=== PATIENT | female | born 1980 | race Caucasian/White ===

== ENCOUNTER 2018-07-02 09:45 | Emergency (ER) | payer OTHER ==
[~2018-07-02] VITALS: Ht 167.6 cm; Wt 83.9 kg
[~2018-07-02 09:45] MED LIST: CALCIUM; CITRACAL + D C1 EACH PO; CYCLOBENZAPRINE5 MG PO; FLEXERIL PO; HYDROCORTISO28.35 G1 TOP; KEFLEX250 M1 PO; LEVOTHYROXINE; MOBIC7.5 M1 PO; MULTIVITAMINS; PREDNISONE 10 M10 M1 PO; WELLBUTRIN SR150 MG; ZYRTEC10 M2
[2018-07-02] MEDS ORDERED: CALCIUM (09:52)
[2018-07-02] MEDS ORDERED: ZYRTEC10 M5 PO (09:53)
[2018-07-02] MEDS ORDERED: CITRACAL + D E1 EACH PO (09:53)
[2018-07-02] MEDS ORDERED: PROTONIX40 M1 PO (09:53)
[2018-07-02] MEDS ORDERED: TRAZODONE HCL100 MG PO (09:54)
[2018-07-02] MEDS ORDERED: ZOLOFT50 MG (09:54)
[2018-07-02 10:14] LABS: URINE BILIRUBIN NEGATIVE (Negative); URINE BLOOD NEGATIVE (Negative); URINE CLARITY CLEAR; URINE COLOR YELLOW; URINE GLUCOSE-RANDOM NEGATIVE (Negative); URINE KETONES NEGATIVE (Negative); URINE LEUKOCYTES-REFLEX NEGATIVE (Negative); URINE NITRITE-REFLEX NEGATIVE (Negative); URINE PROTEIN NEGATIVE (Negative); URINE UROBILINOGEN 0.2 E.U./dl (0.2-1.0)
[2018-07-02 10:27] LABS: ABSOLUTE LYMPHOCYTES 1.9 thou/uL (0.8-5.3); ABSOLUTE MONOCYTES 0.3 thou/uL (0.0-1.2); BASOPHILS 0.5 %; HEMATOCRIT 35.7 % (37.0-47.0); HEMOGLOBIN 11.8 gm/dL (12.0-15.0); LYMPHOCYTES 30.7 %; MCH 27.6 pg (26.0-34.0); MCHC 33.1 g/dL (28.0-37.0); MCV 83.3 fL (80.0-100.0); MONOCYTES 4.7 %; MPV 8.3 fl. (7.2-11.1); NUCLEATED RBCS 0 /100WBC; PLATELET COUNT* 237 thou/uL (150-400); POLYS 64.1 %; RBC 4.29 mil/uL (4.20-5.00); RDW-CV 15.1 % (10.5-14.5); WBC 6.2 thou/uL (4.0-11.0)
[2018-07-02 10:42] LABS: CALCIUM 7.3 mg/dL (8.5-10.1); CREATININE 1.1 mg/dL (0.6-1.3); POTASSIUM 3.9 mmol/L (3.5-5.1)
[2018-07-02 10:47] LABS: ALBUMIN 3.3 g/dL (3.4-5.0); TOTAL BILIRUBIN 0.2 mg/dL (<0.1-1.0); TOTAL PROTEIN 6.7 g/dL (6.4-8.2)
[2018-07-02] MEDS ORDERED: ULTRAM 50MG TAB50 MG PO (12:33)
[2018-07-02] MEDS ORDERED: ZOFRAN ODT4 MG PO (12:33)
[2018-07-02 12:47] VITALS: BP 119/70
== END 2018-07-02 12:47 | disposition home or self-care (01) ==
LOC: M.ERS 09:45
PROVIDERS: Personal Emergency Response Attendant
DX: R10.11 Right upper quadrant pain (principal); E89.0 Postprocedural hypothyroidism; Z90.710 Acquired absence of both cervix and uterus; F17.210 Nicotine dependence, cigarettes, uncomplicated